=== PATIENT | female | born 1970 | race Caucasian/White ===

== ENCOUNTER → 2022-02-24 | Outpatient (CLI) | payer OTHER | LOC: LAB SHORT 09:37 | DX: N39.0 Urinary tract infection, site not specified (principal) ==

== ENCOUNTER → 2023-04-23 | Outpatient (CLI) | payer OTHER ==
[2023-04-23 19:53] LABS: Follicle Stimulating Hormone 31.8 mIU/ml; Luteinizing Hormone 16.2 mIU/ml
[2023-04-27 15:08] LABS: HPV 16 Negative (Negative); HPV 18 Negative (Negative); HPV OTHER HR TYPES Negative (Negative)
== END ==
LOC: LAB 14:30 → LAB SHORT 14:30
PROVIDERS: Registered Nurse Community Health
DX: Z12.4 Encounter for screening for malignant neoplasm of cervix (principal); N92.4 Excessive bleeding in the premenopausal period; R14.0 Abdominal distension (gaseous)
CPT/HCPCS: 83001; 83002; 86304; 87624; G0145

== ENCOUNTER 2023-11-18 01:39 | Emergency (ER) | payer OTHER ==
[~2023-11-18] VITALS: Ht 167.6 cm; Wt 122.9 kg
[2023-11-18 02:17] LABS: BASOPHILS PERCENT AUTO 1 % (0-2); EOSINOPHILS ABSOLUTE AUTO 0.27 K/mm3 (0.00-0.68); EOSINOPHILS PERCENT AUTO 3 % (0-6); Hematocrit 42.3 % (33.0-51.0); Hemoglobin 13.5 g/dL (11.5-16.0); IMMATURE GRAN ABSOLUTE AUTO 0.03 K/mm3 (0.00-0.10); IMMATURE GRAN PERCENT AUTO 0 % (0-1); LYMPHOCYTES ABSOLUTE AUTO 2.74 K/mm3 (0.84-5.20); LYMPHOCYTES PERCENT AUTO 32 % (21-46); MONOCYTES ABSOLUTE AUTO 0.65 K/mm3 (0.16-1.47); MONOCYTES PERCENT AUTO 8 % (4-13); Mean Corpuscular HGB 26.7 pg (26.0-34.0); Mean Corpuscular HGB Conc 31.9 g/dL (31.5-36.5); Mean Corpuscular Volume 84 fL (80-100); Mean Platelet Volume 9.2 fL (9.1-12.4); NEUTROPHILS ABSOLUTE AUTO 4.91 K/mm3 (1.96-9.15); NEUTROPHILS PERCENT AUTO 57 % (41-73); Platelet Count 298 K/mm3 (150-400); RDW Coefficient Variation 14.2 % (11.7-14.2); RDW Standard Deviation 43.4 fL (35.1-46.3); Red Blood Cell Count 5.05 M/mm3 (3.80-5.20)
[2023-11-18] MEDS ORDERED: NS 1,000 ML IV SCH (02:20)
[2023-11-18 02:30] LABS: Albumin, Blood 3.4 g/dL (3.4-5.0); Albumin/Globulin Ratio 0.9 (0.8-1.8); Bilirubin, Total 0.3 mg/dL (0.1-1.0); Bun/Creatinine Ratio 26.9 (12.0-20.0); Calcium, Blood 9.5 mg/dL (8.5-10.1); Creatinine, Blood 0.52 mg/dL (0.40-1.00); Globulin, Blood 3.6 g/dL (2.2-4.0); Potassium, Blood 4.2 mmol/L (3.5-5.5)
[2023-11-18] MEDS ORDERED: Lidocaine 2% Viscous Soln 15 ML UDC PO ONE (02:35)
[2023-11-18] MEDS ORDERED: Mag Hydrox/AL Hydrox/Simeth 30 ML UDC PO ONE (02:35)
[2023-11-18] MEDS ORDERED: Ondansetron HCl 2 MG / ML 2ML Vial IV ONE (03:00)
[2023-11-18] MEDS ORDERED: Ketorolac Tromethamine 15mg Vial IV ONE (03:20)
[2023-11-18] MEDS ORDERED: Morphine Sulfate 4 MG/1 ML Injection IV ONE (04:35)
[2023-11-18] MEDS ORDERED: Metoclopramide HCl 5MG / ML 2ML Vial IV ONE (04:40)
[2023-11-18] MEDS ORDERED: Famotidine 10 MG/ML 2ML Vial IV ONE (05:20)
[2023-11-18 05:30] VITALS: BP 175/100
[2023-11-18] MEDS ORDERED: Omeprazole 20 MG CapCR PO ONE (05:35)
[2023-11-18] MEDS ORDERED: OMEP20ER PO (05:38)
[2023-11-18] MEDS ORDERED: ALMACONE SUSPE355 ML PO (05:38)
[2023-11-18] MEDS ORDERED: FAMO20 PO (05:38)
== END 2023-11-18 05:56 | disposition home or self-care (01) ==
LOC: ER 01:39
PROVIDERS: Emergency Medicine
DX: K29.70 Gastritis, unspecified, without bleeding (principal); E86.0 Dehydration; Z68.41 Body mass index [BMI] 40.0-44.9, adult
CPT/HCPCS: 74177; 76705; 80053; 83690; 85025; 93005; 93010; 96361; 96374-59; 96375; 99284-25; A9270; J1885; J2270; J2405; J2765; J7030; Q9967